=== PATIENT | male | born 1940 | race Caucasian/White ===

== ENCOUNTER 2018-07-09 15:27 | Inpatient (IN) | payer MEDICARE ==
[~2018-07-09] VITALS: Ht 180.3 cm; Wt 80.1 kg
[2018-07-09 16:22] LABS: Hematocrit 24.6 % (41.0-53.0); Hemoglobin 8.2 g/dL (13.5-17.5); Mean Corpuscular Hemoglobin 26.3 pg (28.0-32.0); Mean Corpuscular Hgb Conc. 33.1 g/dL (32.0-36.0); Mean Corpuscular Volume 79.3 fL (80.0-100.0); White Blood Cell 9.5 10^3/uL (4.4-10.8)
[2018-07-09 16:41] LABS: Albumin 3.3 g/dL (3.4-5.0); BUN/Creatinine Ratio 20.9; Bilirubin, Total 0.6 mg/dL (0.2-1.0); Calcium 7.9 mg/dL (8.5-10.1); Potassium 4.7 mmol/L (3.5-5.1)
[2018-07-09 17:05] LABS: Red Cell Distribution Width 20.8 % (11.8-14.3)
[2018-07-09 17:06] LABS: Platelet Count (auto) 136 10^3/uL (140-450)
[2018-07-09 18:14] LABS: Basophils % (manual) 0 (0.0-2.0); Eosinophils % (manual) 0 (0-7); Myelocytes % 0; Promyelocytes % 0; Reactive Lymphocytes 0
[2018-07-09 18:26] LABS: Band Neutrophils % (manual) 3; Lymphocytes % (manual) 10 (10.0-50.0)
[2018-07-09 18:27] LABS: Blast Cells 7; Metamyelocytes % 2; Monocytes % (manual) 12 (0-12)
[2018-07-09] MEDS ORDERED: predniSONE 5 MG TAB PO ONE (18:45)
[2018-07-09] MEDS ORDERED: TEMAZEPAM 15 MG CAP PO PRN (19:00)
[2018-07-09] MEDS ORDERED: MILK OF MAGNESIA 30ML SUSP PO PRN (19:00)
[2018-07-09] MEDS ORDERED: HYDROcodone-ACET 5/325MG TAB PO PRN (19:00)
[2018-07-09] MEDS ORDERED: ACETAMINOPHEN 325 MG TAB PO PRN (19:00)
[2018-07-09] MEDS ORDERED: ONDANSETRON HCL 4 MG/2 ML VIAL IV PRN (19:00)
[2018-07-09] MEDS ORDERED: DOCUSATE SOD 100 MG CAP PO PRN (19:00)
[2018-07-09] MEDS ORDERED: NITROGLYCERIN 0.4 MG SL TAB SL PRN (19:00)
[2018-07-09] MEDS ORDERED: MORPHINE SULFATE 4 MG/ML SYR/VIAL IV PRN ×2 (19:00)
[2018-07-09] MEDS: SODIUM CHLORIDE 0.9% 1,000 ML IV SCH (19:57)
[2018-07-09] MEDS: RUXOLITINIB 5 MG PO SCH (21:26)
[2018-07-09] MEDS: Niacin SR 500mg TAB PO SCH (21:37)
[2018-07-09] MEDS: CARBIDOPA W LEVODOPA 25/100mg TABLET PO SCH (21:37)
[2018-07-09] MEDS: ATORVASTATIN 20 MG TAB PO SCH (21:37)
[2018-07-09] MEDS: GABAPENTIN 300 MG CAP PO SCH (21:37)
[2018-07-09] MEDS: FAMOTIDINE 20 MG TAB PO SCH (21:38)
[2018-07-09] MEDS: ACCU-CHEK COMFORT CURVE STRIP VI SCH (21:38)
[2018-07-09] MEDS: INSULIN LANTUS (GLARGINE) 1 /0.01ml (100units/ml) SC SCH (21:39)
[2018-07-09] MEDS: InsuLIN REG 1unit/0.01ml Soln (100units/ml) SC SCH (21:39)
[2018-07-09 22:00] VITALS: BP 143/63
[2018-07-09 22:14] LABS: Hematocrit 24.7 % (41.0-53.0); Hemoglobin 8.2 g/dL (13.5-17.5)
[2018-07-10] VITALS (9 sets, daily range): BP systolic 105–150; BP diastolic 49–75
[2018-07-10 05:15] LABS: Urine WBC None Seen /hpf (0 - 3)
[2018-07-10] MEDS: CARBIDOPA W LEVODOPA 25/100mg TABLET PO SCH ×3 (05:28→22:17)
[2018-07-10] MEDS: ACCU-CHEK COMFORT CURVE STRIP VI SCH ×4 (05:28→22:18)
[2018-07-10] MEDS: LEVOTHYROXINE SODIUM 25 MCG TAB PO SCH (05:28)
[2018-07-10 05:35] LABS: Urine Bacteria NONE SEEN /hpf (None Seen); Urine Blood Negative /uL (Negative); Urine Specific Gravity 1.015 (1.001-1.035)
[2018-07-10] MEDS: InsuLIN REG 1unit/0.01ml Soln (100units/ml) SC SCH ×4 (05:57→22:26)
[2018-07-10 06:25] LABS: White Blood Cell 10.1 10^3/uL (4.4-10.8)
[2018-07-10 06:28] LABS: Hematocrit 23.2 % (41.0-53.0); Hemoglobin 7.7 g/dL (13.5-17.5); Mean Corpuscular Hemoglobin 25.7 pg (28.0-32.0); Mean Corpuscular Hgb Conc. 33.2 g/dL (32.0-36.0); Mean Corpuscular Volume 77.2 fL (80.0-100.0); Platelet Count (auto) 115 10^3/uL (140-450); Red Blood Cells 3.01 10^6/uL (4.5-5.90)
[2018-07-10 06:30] LABS: Red Cell Distribution Width 20.7 % (11.8-14.3)
[2018-07-10 06:31] LABS: Basophils % (manual) 0 (0.0-2.0); Blast Cells 0; Eosinophils % (manual) 0 (0-7); Myelocytes % 0; Reactive Lymphocytes 0
[2018-07-10 06:42] LABS: BUN/Creatinine Ratio 21.1; Bilirubin, Total 0.6 mg/dL (0.2-1.0); Potassium 4.4 mmol/L (3.5-5.1); Total Protein 6.4 g/dL (6.4-8.2)
[2018-07-10] MEDS ORDERED: PNEUMOCOCCAL VACC POLYS 25 MCG/0.5 ML VIAL IM ONE (06:45)
[2018-07-10] MEDS: INSULIN LANTUS (GLARGINE) 1 /0.01ml (100units/ml) SC SCH ×2 (07:00→22:26)
[2018-07-10] MEDS ORDERED: LEVO25TA49 PO (07:01)
[2018-07-10] MEDS ORDERED: NIAC500T71 PO (07:01)
[2018-07-10] MEDS ORDERED: PRE1T PO (07:01)
[2018-07-10 08:11] LABS: Band Neutrophils % (manual) 9; Lymphocytes % (manual) 17 (10.0-50.0); Metamyelocytes % 2; Monocytes % (manual) 24 (0-12); Promyelocytes % 1
[2018-07-10] MEDS: FERROUS SULFATE 325 MG TAB PO SCH ×2 (08:48→17:47)
[2018-07-10] MEDS: Glucerna Carbsteady SHAKE Vanilla 8oz PO SCH ×3 (08:49→18:10)
[2018-07-10] MEDS: RUXOLITINIB 5 MG PO SCH ×2 (10:00→22:17)
[2018-07-10] MEDS: MULTIPLE VITAMIN TAB PO SCH (10:10)
[2018-07-10] MEDS: predniSONE 5 MG TAB PO SCH (10:11)
[2018-07-10] MEDS: B-COMPLEX W/ C & FOLIC ACID(NEPHROVITE TAB) PO SCH (10:11)
[2018-07-10] MEDS: FAMOTIDINE 20 MG TAB PO SCH ×2 (10:11→22:18)
[2018-07-10] MEDS: ASCORBIC ACID 500 MG TAB PO SCH (10:11)
[2018-07-10] MEDS: DULoxetine HCL 30 MG CAP PO SCH (10:11)
[2018-07-10] MEDS: GABAPENTIN 300 MG CAP PO SCH ×2 (10:11→22:18)
[2018-07-10] MEDS: CHOLECALCIFEROL (VITD3) 1,000 UNIT TAB PO SCH (10:40)
[2018-07-10] MEDS: SODIUM CHLORIDE 0.9% 1,000 ML IV SCH (13:06)
[2018-07-10 15:17] LABS: INR 1.04 (0.9-1.15); Partial Thromboplastin Time 28.4 sec (23.78-33.04); Prothrombin Time 11.1 sec (9.27-12.13)
[2018-07-10] MEDS ORDERED: CHOL20006 PO (16:28)
[2018-07-10] MEDS ORDERED: CHOL20007 PO (16:28)
[2018-07-10] MEDS ORDERED: GABA300C10 PO (16:28)
[2018-07-10] MEDS ORDERED: B-CO1TAB8 PO (16:28)
[2018-07-10] MEDS ORDERED: CLOP75TA28 PO (16:28)
[2018-07-10] MEDS ORDERED: FOLI1TAB6 PO (16:28)
[2018-07-10] MEDS ORDERED: CARB25TA3 PO (16:28)
[2018-07-10] MEDS ORDERED: FERR-20 PO (16:32)
[2018-07-10] MEDS ORDERED: ATOR20TA PO (16:32)
[2018-07-10] MEDS ORDERED: ASPI-498 OR (16:32)
[2018-07-10] MEDS ORDERED: DULO20CA PO (16:32)
[2018-07-10] MEDS ORDERED: INSU75IN2 SC ×2 (16:34)
[2018-07-10] MEDS ORDERED: POM PO (16:40)
[2018-07-10] MEDS: ATORVASTATIN 20 MG TAB PO SCH (22:17)
[2018-07-10] MEDS: Niacin SR 500mg TAB PO SCH (22:18)
[2018-07-11] MEDS: SODIUM CHLORIDE 0.9% 1,000 ML IV SCH ×2 (04:11→20:51)
[2018-07-11 05:00] VITALS: BP 147/68
[2018-07-11] MEDS: LEVOTHYROXINE SODIUM 25 MCG TAB PO SCH (05:42)
[2018-07-11] MEDS: ACCU-CHEK COMFORT CURVE STRIP VI SCH ×4 (05:42→21:20)
[2018-07-11] MEDS: CARBIDOPA W LEVODOPA 25/100mg TABLET PO SCH ×3 (05:42→21:18)
[2018-07-11] MEDS: InsuLIN REG 1unit/0.01ml Soln (100units/ml) SC SCH ×4 (05:48→21:20)
[2018-07-11] MEDS: INSULIN LANTUS (GLARGINE) 1 /0.01ml (100units/ml) SC SCH ×2 (05:48→21:20)
[2018-07-11] MEDS: DEXTROSE (50%) 50ML SYRG IV PRN ×2 (05:49→21:10)
[2018-07-11 05:55] LABS: Hemoglobin 8.4 g/dL (13.5-17.5); Platelet Count (auto) 105 10^3/uL (140-450); White Blood Cell 12.5 10^3/uL (4.4-10.8)
[2018-07-11 05:58] LABS: Hematocrit 25.5 % (41.0-53.0); Mean Corpuscular Hemoglobin 26.1 pg (28.0-32.0); Mean Corpuscular Hgb Conc. 32.9 g/dL (32.0-36.0); Mean Corpuscular Volume 79.3 fL (80.0-100.0); Red Blood Cells 3.22 10^6/uL (4.5-5.90)
[2018-07-11 06:00] LABS: Red Cell Distribution Width 20.7 % (11.8-14.3)
[2018-07-11 06:01] LABS: Basophils % (manual) 0 (0.0-2.0); Eosinophils % (manual) 0 (0-7); Promyelocytes % 0; Reactive Lymphocytes 0
[2018-07-11 06:17] LABS: BUN/Creatinine Ratio 19.1; Bilirubin, Total 0.6 mg/dL (0.2-1.0); Calcium 8.2 mg/dL (8.5-10.1); Potassium 4.3 mmol/L (3.5-5.1); Total Protein 6.4 g/dL (6.4-8.2)
[2018-07-11 06:53] LABS: Band Neutrophils % (manual) 4; Blast Cells 2; Lymphocytes % (manual) 21 (10.0-50.0); Metamyelocytes % 2; Monocytes % (manual) 22 (0-12); Myelocytes % 3
[2018-07-11] MEDS: Glucerna Carbsteady SHAKE Vanilla 8oz PO SCH ×3 (08:00→18:00)
[2018-07-11 08:46] VITALS: BP 127/58
[2018-07-11] MEDS: FERROUS SULFATE 325 MG TAB PO SCH ×2 (08:52→18:27)
[2018-07-11] MEDS: MULTIPLE VITAMIN TAB PO SCH (08:53)
[2018-07-11] MEDS: predniSONE 5 MG TAB PO SCH (08:53)
[2018-07-11] MEDS: DULoxetine HCL 30 MG CAP PO SCH (08:53)
[2018-07-11] MEDS: ASCORBIC ACID 500 MG TAB PO SCH (08:53)
[2018-07-11] MEDS: B-COMPLEX W/ C & FOLIC ACID(NEPHROVITE TAB) PO SCH (08:53)
[2018-07-11] MEDS: FAMOTIDINE 20 MG TAB PO SCH ×2 (09:07→21:19)
[2018-07-11] MEDS: GABAPENTIN 300 MG CAP PO SCH ×2 (10:00→21:19)
[2018-07-11] MEDS: RUXOLITINIB 5 MG PO SCH ×2 (10:00→21:28)
[2018-07-11] MEDS ORDERED: cefTRIAXone 1GM/10ml IVPUSH 10 ML IV ONE (10:45)
[2018-07-11] MEDS ORDERED: PANTOPRAZOLE 40 MG/10 ML VIAL IV ONE (10:45)
[2018-07-11] MEDS: CHOLECALCIFEROL (VITD3) 1,000 UNIT TAB PO SCH (11:48)
[2018-07-11 12:09] VITALS: BP 145/62
[2018-07-11 14:12] LABS: % Iron Saturation 19.1 % (20-55)
[2018-07-11 14:16] LABS: Folate (Folic Acid) > 24.00 ng/mL (5.38-24)
[2018-07-11] MEDS ORDERED: POM SUBCUT (16:52)
[2018-07-11 17:13] VITALS: BP 145/73
[2018-07-11] MEDS: SODIUM FERR GLUC 62.5MG/5ML 125 MG in SODIUM CHL 0.9% 100 ML IV SCH (18:27)
[2018-07-11] MEDS: Niacin SR 500mg TAB PO SCH (21:18)
[2018-07-11] MEDS: ATORVASTATIN 20 MG TAB PO SCH (21:19)
[2018-07-11 22:00] VITALS: BP 146/72
[2018-07-12 05:00] VITALS: BP 117/63
[2018-07-12] MEDS: INSULIN LANTUS (GLARGINE) 1 /0.01ml (100units/ml) SC SCH ×2 (05:35→21:31)
[2018-07-12] MEDS: ACCU-CHEK COMFORT CURVE STRIP VI SCH ×4 (05:35→21:16)
[2018-07-12] MEDS: InsuLIN REG 1unit/0.01ml Soln (100units/ml) SC SCH ×4 (05:35→21:31)
[2018-07-12] MEDS: LEVOTHYROXINE SODIUM 25 MCG TAB PO SCH (05:36)
[2018-07-12] MEDS: CARBIDOPA W LEVODOPA 25/100mg TABLET PO SCH ×3 (05:36→21:16)
[2018-07-12 08:03] LABS: Hemoglobin 8.7 g/dL (13.5-17.5); Mean Corpuscular Hgb Conc. 32.8 g/dL (32.0-36.0); White Blood Cell 11.6 10^3/uL (4.4-10.8)
[2018-07-12 08:06] LABS: Hematocrit 26.4 % (41.0-53.0); Mean Corpuscular Hemoglobin 25.8 pg (28.0-32.0); Mean Corpuscular Volume 78.7 fL (80.0-100.0); Platelet Count (auto) 97 10^3/uL (140-450); Red Blood Cells 3.36 10^6/uL (4.5-5.90)
[2018-07-12 08:11] LABS: Red Cell Distribution Width 20.8 % (11.8-14.3)
[2018-07-12 08:12] LABS: Basophils % (manual) 0 (0.0-2.0); Eosinophils % (manual) 0 (0-7); Promyelocytes % 0; Reactive Lymphocytes 0
[2018-07-12 08:14] LABS: Albumin 2.8 g/dL (3.4-5.0); BUN/Creatinine Ratio 15.8; Bilirubin, Total 0.6 mg/dL (0.2-1.0); Calcium 7.9 mg/dL (8.5-10.1); Potassium 4.1 mmol/L (3.5-5.1); Total Protein 6.2 g/dL (6.4-8.2)
[2018-07-12 08:43] VITALS: BP 117/59
[2018-07-12] MEDS: FERROUS SULFATE 325 MG TAB PO SCH ×2 (08:47→18:00)
[2018-07-12] MEDS: Glucerna Carbsteady SHAKE Vanilla 8oz PO SCH ×3 (08:47→18:36)
[2018-07-12] MEDS: cefTRIAXone 1GM/10ml IVPUSH 10 ML IV SCH (08:48)
[2018-07-12] MEDS: PANTOPRAZOLE 40 MG/10 ML VIAL IV SCH (09:32)
[2018-07-12] MEDS: MULTIPLE VITAMIN TAB PO SCH (09:33)
[2018-07-12] MEDS: predniSONE 5 MG TAB PO SCH (09:33)
[2018-07-12] MEDS: RUXOLITINIB 5 MG PO SCH ×2 (09:33→21:15)
[2018-07-12] MEDS: GABAPENTIN 300 MG CAP PO SCH ×2 (09:33→21:16)
[2018-07-12] MEDS: FAMOTIDINE 20 MG TAB PO SCH ×2 (09:34→21:16)
[2018-07-12] MEDS: ASCORBIC ACID 500 MG TAB PO SCH (09:34)
[2018-07-12] MEDS: CHOLECALCIFEROL (VITD3) 1,000 UNIT TAB PO SCH (09:34)
[2018-07-12] MEDS: DULoxetine HCL 30 MG CAP PO SCH (09:34)
[2018-07-12] MEDS: B-COMPLEX W/ C & FOLIC ACID(NEPHROVITE TAB) PO SCH (09:34)
[2018-07-12 10:42] LABS: Band Neutrophils % (manual) 4; Lymphocytes % (manual) 12 (10.0-50.0); Monocytes % (manual) 19 (0-12)
[2018-07-12 10:43] LABS: Blast Cells 9; Metamyelocytes % 1; Myelocytes % 1
[2018-07-12 12:11] VITALS: BP 124/59
[2018-07-12] MEDS: SODIUM CHLORIDE 0.9% 1,000 ML IV SCH (14:02)
[2018-07-12 16:55] VITALS: BP 124/62
[2018-07-12] MEDS: SODIUM FERR GLUC 62.5MG/5ML 125 MG in SODIUM CHL 0.9% 100 ML IV SCH (17:20)
[2018-07-12] MEDS: ATORVASTATIN 20 MG TAB PO SCH (21:15)
[2018-07-12] MEDS: Niacin SR 500mg TAB PO SCH (21:16)
[2018-07-12 22:00] VITALS: BP 112/56
[2018-07-13 05:00] VITALS: BP 102/52
[2018-07-13] MEDS: InsuLIN REG 1unit/0.01ml Soln (100units/ml) SC SCH ×3 (05:15→17:00)
[2018-07-13] MEDS: LEVOTHYROXINE SODIUM 25 MCG TAB PO SCH (05:15)
[2018-07-13] MEDS: CARBIDOPA W LEVODOPA 25/100mg TABLET PO SCH ×2 (05:15→15:43)
[2018-07-13] MEDS: ACCU-CHEK COMFORT CURVE STRIP VI SCH ×3 (05:16→17:00)
[2018-07-13] MEDS: INSULIN LANTUS (GLARGINE) 1 /0.01ml (100units/ml) SC SCH (05:16)
[2018-07-13] MEDS: SODIUM CHLORIDE 0.9% 1,000 ML IV SCH (06:11)
[2018-07-13 06:51] LABS: Hematocrit 21.7 % (41.0-53.0); Hemoglobin 7.4 g/dL (13.5-17.5); Mean Corpuscular Hemoglobin 26.3 pg (28.0-32.0); Mean Corpuscular Hgb Conc. 33.9 g/dL (32.0-36.0); Mean Corpuscular Volume 77.6 fL (80.0-100.0); Platelet Count (auto) 103 10^3/uL (140-450); White Blood Cell 7.3 10^3/uL (4.4-10.8)
[2018-07-13 06:57] LABS: Red Cell Distribution Width 20.9 % (11.8-14.3)
[2018-07-13 07:00] LABS: Basophils % (manual) 0 (0.0-2.0); Eosinophils % (manual) 0 (0-7); Metamyelocytes % 0; Myelocytes % 0; Promyelocytes % 0; Reactive Lymphocytes 0
[2018-07-13 07:08] LABS: Potassium 4.5 mmol/L (3.5-5.1)
[2018-07-13 07:13] LABS: Albumin 2.5 g/dL (3.4-5.0); BUN/Creatinine Ratio 23.3; Calcium 7.5 mg/dL (8.5-10.1)
[2018-07-13 07:16] LABS: Bilirubin, Total 0.5 mg/dL (0.2-1.0); Total Protein 5.8 g/dL (6.4-8.2)
[2018-07-13] MEDS: Glucerna Carbsteady SHAKE Vanilla 8oz PO SCH ×3 (08:20→18:11)
[2018-07-13] MEDS: FERROUS SULFATE 325 MG TAB PO SCH ×2 (08:22→18:11)
[2018-07-13] MEDS: cefTRIAXone 1GM/10ml IVPUSH 10 ML IV SCH (08:30)
[2018-07-13 08:37] LABS: Band Neutrophils % (manual) 2; Blast Cells 9; Lymphocytes % (manual) 16 (10.0-50.0); Monocytes % (manual) 23 (0-12)
[2018-07-13 09:00] VITALS: BP 104/52
[2018-07-13] MEDS: RUXOLITINIB 5 MG PO SCH (09:51)
[2018-07-13] MEDS: PANTOPRAZOLE 40 MG/10 ML VIAL IV SCH (10:24)
[2018-07-13] MEDS: B-COMPLEX W/ C & FOLIC ACID(NEPHROVITE TAB) PO SCH (10:24)
[2018-07-13] MEDS: GABAPENTIN 300 MG CAP PO SCH (10:24)
[2018-07-13] MEDS: DULoxetine HCL 30 MG CAP PO SCH (10:24)
[2018-07-13] MEDS: predniSONE 5 MG TAB PO SCH (10:24)
[2018-07-13] MEDS: MULTIPLE VITAMIN TAB PO SCH (10:25)
[2018-07-13] MEDS: ASCORBIC ACID 500 MG TAB PO SCH (10:25)
[2018-07-13] MEDS: FAMOTIDINE 20 MG TAB PO SCH (10:25)
[2018-07-13] MEDS: CHOLECALCIFEROL (VITD3) 1,000 UNIT TAB PO SCH (10:31)
[2018-07-13] MEDS: SODIUM FERR GLUC 62.5MG/5ML 125 MG in SODIUM CHL 0.9% 100 ML IV SCH (12:00)
[2018-07-13 13:00] VITALS: BP 114/52
[2018-07-13 17:00] VITALS: BP 133/64
== END 2018-07-13 18:40 | DRG 812 ==
LOC: EDBD 15:27 → ER 15:27 → TELE 15:28 → TELE-CENTR 20:54
PROVIDERS: ADMIT Internal Medicine; ATTEND Family Medicine
PROC: 30233N1 Transfusion of Nonautologous Red Blood Cells into Peripheral Vein, Percutaneous Approach (ICD-10-PCS; principal; 2018-07-10)
DX: D50.9 Iron deficiency anemia, unspecified (principal); K51.90 Ulcerative colitis, unspecified, without complications; S22.41XA Multiple fractures of ribs, right side, initial encounter for closed fracture; E44.1 Mild protein-calorie malnutrition; D75.81 Myelofibrosis; L89.152 Pressure ulcer of sacral region, stage 2; D69.6 Thrombocytopenia, unspecified; D46.9 Myelodysplastic syndrome, unspecified; E03.9 Hypothyroidism, unspecified; E11.21 Type 2 diabetes mellitus with diabetic nephropathy; E11.22 Type 2 diabetes mellitus with diabetic chronic kidney disease; E78.00 Pure hypercholesterolemia, unspecified; E83.51 Hypocalcemia; G20 Parkinson's disease; E11.42 Type 2 diabetes mellitus with diabetic polyneuropathy; I12.9 Hypertensive chronic kidney disease with stage 1 through stage 4 chronic kidney disease, or unspecified chronic kidney disease; I70.0 Atherosclerosis of aorta; J44.9 Chronic obstructive pulmonary disease, unspecified; N18.2 Chronic kidney disease, stage 2 (mild); Z82.49 Family history of ischemic heart disease and other diseases of the circulatory system; Z83.3 Family history of diabetes mellitus; Z86.73 Personal history of transient ischemic attack (TIA), and cerebral infarction without residual deficits; X58.XXXA Exposure to other specified factors, initial encounter; Y93.89 Activity, other specified; Y92.89 Other specified places as the place of occurrence of the external cause; Y99.8 Other external cause status; Z98.61 Coronary angioplasty status; Z68.24 Body mass index [BMI] 24.0-24.9, adult; Z53.20 Procedure and treatment not carried out because of patient's decision for unspecified reasons
CPT/HCPCS: 36415; 71045; 76700; 80053; 81001; 82607; 82728; 82746; 82962; 83036; 83540; 83550; 84443; 85007; 85014; 85018; 85027; 85060; 85610; 85730; 86850; 86900; 86901; 86920; 87040; 87081; 87086; 93306; 96360; C9113; J0696; J1815

== ENCOUNTER 2018-08-09 19:50 | Emergency (ER) | payer MEDICARE ==
[~2018-08-09] VITALS: Ht 180.3 cm; Wt 77.1 kg
[~2018-08-09 19:50] MED LIST: ASPI-498 OR; ATOR20TA PO; B-CO1TAB8 PO; CARB25TA3 PO; CHOL20006 PO; CLOP75TA28 PO; DULO20CA PO; FERR-20 PO; FOLI1TAB6 PO; GABA300C10 PO; INSU75IN2 SC; LEVO25TA49 PO; NIAC500T71 PO; POM PO; POM SUBCUT; PRE1T PO
[2018-08-09 21:13] LABS: Hematocrit 22.3 % (41.0-53.0); Hemoglobin 7.4 g/dL (13.5-17.5); Mean Corpuscular Hemoglobin 26.2 pg (28.0-32.0); Mean Corpuscular Hgb Conc. 33.1 g/dL (32.0-36.0); Platelet Count (auto) 131 10^3/uL (140-450)
[2018-08-09 21:15] LABS: Mean Corpuscular Volume 79.3 fL (80.0-100.0); Red Blood Cells 2.81 10^6/uL (4.5-5.90); White Blood Cell 4.8 10^3/uL (4.4-10.8)
[2018-08-09 21:18] LABS: Red Cell Distribution Width 20.5 % (11.8-14.3)
[2018-08-09 21:21] LABS: Basophils % (manual) 0 (0.0-2.0); Eosinophils % (manual) 0 (0-7); Promyelocytes % 0; Reactive Lymphocytes 0
[2018-08-09 21:26] LABS: INR 0.99 (0.9-1.15); Partial Thromboplastin Time 28.7 sec (23.78-33.04); Prothrombin Time 10.6 sec (9.27-12.13)
[2018-08-09 21:29] LABS: Albumin 3.1 g/dL (3.4-5.0); BUN/Creatinine Ratio 28.3; Calcium 8.3 mg/dL (8.5-10.1); Potassium 4.9 mmol/L (3.5-5.1)
[2018-08-09 21:32] LABS: Bilirubin, Total 0.5 mg/dL (0.2-1.0)
[2018-08-09 22:21] LABS: Band Neutrophils % (manual) 6; Metamyelocytes % 3; Monocytes % (manual) 22 (0-12); Myelocytes % 2
[2018-08-09 22:25] LABS: Blast Cells 4; Lymphocytes % (manual) 21 (10.0-50.0)
[2018-08-10 00:25] VITALS: BP 113/45
[2018-08-10 00:45] VITALS: BP 110/46
[2018-08-10 02:31] VITALS: BP 125/64
[2018-08-10 03:13] LABS: Hemoglobin 7.7 g/dL (13.5-17.5)
[2018-08-10 03:17] LABS: Hematocrit 23.5 % (41.0-53.0)
[2018-08-10 08:04] VITALS: BP 142/68
== END 2018-08-10 08:31 | disposition home or self-care (01) ==
LOC: EDUNIT# 19:50 → EDBD 19:50 → ER 19:50
DX: D64.9 Anemia, unspecified (principal); F03.90 Unspecified dementia, unspecified severity, without behavioral disturbance, psychotic disturbance, mood disturbance, and anxiety; J44.9 Chronic obstructive pulmonary disease, unspecified; E11.9 Type 2 diabetes mellitus without complications; I10 Essential (primary) hypertension; I25.2 Old myocardial infarction; E07.9 Disorder of thyroid, unspecified; Z79.82 Long term (current) use of aspirin; Z79.4 Long term (current) use of insulin; Z79.899 Other long term (current) drug therapy; Z79.01 Long term (current) use of anticoagulants
CPT/HCPCS: 36415; 36430; 71045; 80053; 85007; 85014; 85018; 85025; 85027; 85610; 85730; 86850; 86900; 86901; 86920; 93005; 94761; 99285; J7030; P9016